=== PATIENT | female | born 1950 | race Caucasian/White ===

== ENCOUNTER 2022-12-28 11:45 | Emergency (ER) | payer MEDICARE, SELFPAY ==
--- NOTE | ~2022-12-28 | US_ITS ---
EXAMINATION: US VENOUS ULTRASOUND WITH DOPPLER LOWER EXTREMITY, LEFT CLINICAL INFORMATION: Pain COMPARISON: None available. TECHNIQUE: Ultrasound of the deep veins is performed from the hip to the calf with compression sonography and color and pulse Doppler assessment. Spectral analysis with color-flow imaging is performed. FINDINGS: There is normal venous compression and respiratory variation and augmented flow. The visualized common femoral vein, superficial femoral vein, profunda femoral vein, popliteal vein, and the trifurcation region shows no evidence of deep venous thrombosis. There is no significant popliteal fossa cyst. If the patient's symptoms persist, followup ultrasound in 5 days 7 days might be of value to exclude proximal propagation from a non-visualized calf vein. US/US venous duplex LE LT IMPRESSION: No DVT demonstrated in the left lower extremity.
[2022-12-28 12:00] VITALS: BP 110/63; PULSE 67; RESP 15; TEMP 20.5; O2SAT 99; BMI 24.5
--- NOTE | 2022-12-28 12:05 | ED.GENADULT ---
HPI - General Adult General Chief complaint: Extremity Injury, Lower Stated complaint: L leg pain Time Seen by Provider: 12/28/22 13:00 Source: patient Mode of arrival: ambulatory Limitations: no limitations History of Present Illness HPI narrative: 71-year-old female with history of chronic back and neck pain from a previous injury presents to the ER with complaints of pain over the left lower extremity along the lateral aspect for the last 2 days with no known injury or trauma. Patient reports the pain is worsened at night time. She also has pain at rest. Pain is not worsened with activity. She denies any associated swelling, redness, numbness, tingling of the extremity. No shortness of breath or chest pain. She does have chronic back pain but does not like this is new or worsened. She does have Flexeril and naproxen at home but she has not tried taking these. No recent travel or surgeries. No history of DVT/PE Related Data Allergies Allergy/AdvReac Type Severity Reaction Status Date / Time aspirin [ASA] Allergy Swelling Verified 12/28/22 12:07 Penicillins [PCN] Allergy Swelling Verified 12/28/22 12:07 Review of Systems Review of Systems: Yes all other systems are reviewed and are negative Constitutional: Constitutional: Reports no additional constitutional complaints, Denies body ache(s), Denies chills, Denies fever(s), Denies headache(s) and Denies weakness Eyes: Eyes: Reports no additional eye complaints and Denies change in vision ENT: Reports system reviewed and no additional complaints, except as documented, Denies dizziness, Denies headache(s), Denies nasal congestion, Denies nasal discharge and Denies neck pain Cardiovascular: Cardiovascular: Reports no additional cardiovascular complaints, Denies chest pain, Denies leg edema and Denies dyspnea Respiratory: Respiratory: Reports no additional respiratory complaints, Denies cough and Denies dyspnea Gastrointestinal: Gastrointestinal: Reports no additional gastrointestinal complaints, Denies abdominal pain, Denies diarrhea, Denies nausea and Denies vomiting Genitourinary: Genitourinary: Reports no additional female genitourinary complaints and Denies urinary incontinence Musculoskeletal: Musculoskeletal: Reports no additional musculoskeletal complaints, Denies back pain, Denies arthralgias, Denies joint swelling, Reports muscle cramps, Denies neck pain, Denies numbness and Denies tingling Integumentary/Breasts: Skin/Breast: Reports system reviewed and no additional complaints, except as docu and Denies rash Neurologic: Reports system reviewed and no additional complaints, except as documented, Denies Abnormal speech present, Denies dizziness, Denies headache(s), Denies numbness, Denies tingling and Denies weakness PMFSH Past Medical History Attestation statement: The following information was validated with the patient. Source: old records reviewed and nursing notes reviewed Social History Social History Advance Directives: No Advance Directives Information Provided: No Physical Exam ED Vital Signs: Vital Signs - 24 hr 12/28/22 12:00 Temperature 68.9 F L Pulse Rate 67 Respiratory Rate 15 Blood Pressure 110/63 Pulse Oximetry 99 Oxygen Delivery Method Room Air BMI result Body Mass Index 24.5 Const General: cooperative, healthy appearing, comfortable and no acute distress Orientation/consciousness: patient oriented x3 Limitations: no limitations HENMT Head: Yes normal to inspection Ears: hearing grossly normal bilaterally General nose exam: Normal external nose present Face and sinus: Yes normal facial exam Mouth: Normal oral and palatal mucosa present Throat: Yes posterior oropharynx normal Eyes General: appearance normal, both eyes and all related structures Pupils: Equal, round and reactive pupils present Neck Neck: Yes normal visual inspection Chest Chest palpation & inspection: normal inspection of the chest Resp Effort & Inspection: normal respiratory effort Auscultation: clear to auscultation bilaterally Cardio Rate: regular rate Rhythm: regular rhythm Peripheral pulses: Peripheral pulses 2+ throughout GI Inspection: Yes normal to inspection Palpation (GI): Soft to palpation and nontender Auscultation: normal bowel sounds Back/Spine/Pelvis Thoracic/Lumbar Spine: thoracic and lumbar spine normal to inspection Skin General skin exam: no rashes or lesions noted Neuro General: patient oriented x3, no focal motor deficits and normal sensation to monofilament Cranial nerves: Yes Equal, round and reactive pupils present Cognition (Neuro): normal cognition Speech: No Abnormal speech present Gait exam (Neuro): Normal gait present Motor exam (neuro): 5/5 motor strength present throughout Extrem Other: Over the left lateral lower leg there is mild tenderness. There is no posterior calf pain. There is no tenderness over the medial aspect. There is no appreciable erythema, warmth, swelling. There is normal sensation. There are normal DP and PT pulses. General: Yes normal to inspection Course Course Course Narrative: RME: 71 yold female presents to the ED for left leg pain since last night descrbes as cramping/tingling. patient denies any swelling, redness, recent long travel, recent surgery, trauma, fever, or chills. motor/neuro/vascular exam is intact of left lower extremity. no redness or ecchymosis. US of legs ordered. negative for signs of arterial occlusions or compartment syndrome on quick insepction. US ordered Reevaluation(s) Reevaluation #1: ultrasound shows no signs of a DVT. Likely muscle cramps or strain. Recommend patient take her home naproxen or Flexeril. Recommend supportive care and follow-up with primary for any continued symptoms. Medical Decision Making Medical Decision Making MDM Narrative: 71-year-old female with history of chronic back and neck pain from a previous injury presents to the ER with complaints of pain over the left lower extremity along the lateral aspect for the last 2 days with no known injury or trauma. Patient reports the pain is worsened at night time. She also has pain at rest. Pain is not worsened with activity. She denies any associated swelling, redness, numbness, tingling of the extremity. No shortness of breath or chest pain. She does have chronic back pain but does not like this is new or worsened. She does have Flexeril and naproxen at home but she has not tried taking these. No recent travel or surgeries. No history of DVT/PE Over the left lateral lower leg there is mild tenderness. There is no posterior calf pain. There is no tenderness over the medial aspect. There is no appreciable erythema, warmth, swelling. There is normal sensation. There are normal DP and PT pulses. Ultrasound ordered from triage. Will review Differential Diagnosis Differential Diagnoses: The differential diagnosis associated with the presentation includes muscle cramps, muscle strain, DVT low concern for fracture Independent Interpretation I performed an independent interpretation of an: Ultrasound Interpretation: I independently reviewed the ultrasound agree with radiology report Radiology Impression Discussion of test interpretation with radiology: I have reviewed the radiologist's reading. Radiologist Impression: [address] [address] Ultrasound Report Signed Patient: Lucila Pierre MR#: [id number] : 1950 Acct:[id number] Age/Sex: 71 / F ADM Date: 12/28/22 Loc: HO.ED Attending Dr: Ordering Physician: Gerald Goins Date of Service: 12/28/22 Procedure(s): US venous duplex LE LT Accession Number(s): [id number] cc: Gerald Goins; Physician,Unknown ~ EXAMINATION: US VENOUS ULTRASOUND WITH DOPPLER LOWER EXTREMITY, LEFT CLINICAL INFORMATION: Pain COMPARISON: None available. TECHNIQUE: Ultrasound of the deep veins is performed from the hip to the calf with compression sonography and color and pulse Doppler assessment. Spectral analysis with color-flow imaging is performed. FINDINGS: There is normal venous compression and respiratory variation and augmented flow. The visualized common femoral vein, superficial femoral vein, profunda femoral vein, popliteal vein, and the trifurcation region shows no evidence of deep venous thrombosis. There is no significant popliteal fossa cyst. If the patient's symptoms persist, followup ultrasound in 5 days 7 days might be of value to exclude proximal propagation from a non-visualized calf vein. US/US venous duplex LE LT IMPRESSION: No DVT demonstrated in the left lower extremity. Discharge Plan Discharge Clinical Impression: Muscle pain Patient Disposition: Home, Self-Care Instructions: Musculoskeletal Pain (ED) Additional Instructions: ultrasound shows no signs of a blood clot try taking the Flexeril and naproxen the next few days apply a topical pain cream heat to the area try limiting heavy blankets on your bed over your legs follow-up with your primary care doctor by Thursday for continued symptoms Referrals: Physician,Unknown J [Primary Care Provider] - 1 week Interventions: ED Discharge Assessment Last Done: 12/28/22 14:04 Discharge Date/Time: 12/28/22 14:04
== END 2022-12-28 14:04 | disposition home or self-care (01) ==
PROVIDERS: Emergency Provider Emergency Medicine
DX: S83.92XA Sprain of unspecified site of left knee, initial encounter (principal); R60.0 Localized edema; X58.XXXA Exposure to other specified factors, initial encounter; Y93.9 Activity, unspecified; Y92.9 Unspecified place or not applicable; Y99.9 Unspecified external cause status
CPT/HCPCS: 93971; 99283